=== PATIENT | male | born 1965 | race African-American/Black ===

== ENCOUNTER 2016-12-07 11:39 | Emergency (ER) | payer MEDICAID ==
[~2016-12-07] VITALS: Ht 180.3 cm; Wt 104.0 kg
[2016-12-07 13:07] VITALS: BP 140/9
== END 2016-12-07 16:58 | disposition home or self-care (01) ==
LOC: ER 15:01
DX: M54.5 Low back pain (principal); R20.0 Anesthesia of skin; R10.30 Lower abdominal pain, unspecified; I10 Essential (primary) hypertension
CPT/HCPCS: 99283